=== PATIENT | female | born 1990 | race Caucasian/White ===

== ENCOUNTER 2022-04-15 07:15 | Inpatient (IN) | payer BC ==
[~2022-04-15 07:15] MED LIST: Bupivacaine 0.25% 10 ML SDV ONE
[2022-04-15] MEDS ORDERED: Nalbuphine HCl 10 MG/ 1ML Amp IVPUSH PRN (09:15)
[2022-04-15] MEDS ORDERED: Oxytocin/Lactated Ringers 10 UNIT/1,000 ML BAG IV SCH ×2 (09:15)
[2022-04-15] MEDS ORDERED: Lidocaine 1% 50 ML MDV INJECT PRN (09:15)
[2022-04-15] MEDS ORDERED: Sodium Chloride 0.9% 10 ML Syringe FLUSH PRN (09:15)
[2022-04-15] MEDS: Lactated Ringers 1,000 ML IV SCH ×3 (09:21→17:38)
[2022-04-15] MEDS ORDERED: Ampicillin 2 GM in Sodium Chloride 0.9% 100 ML IV ONE (09:30)
[2022-04-15] MEDS: Ampicillin 1 GM in Sodium Chloride 0.9% 100 ML IV SCH ×2 (13:03→17:38)
[2022-04-15] MEDS ORDERED: diphenhydrAMINE 50 MG/ML SDV IVPUSH PRN (13:33)
[2022-04-15] MEDS ORDERED: fentaNYL 100 MCG/2 ML SDV EPIDUR PRN (13:33)
[2022-04-15] MEDS ORDERED: ePHEDrine 50 MG/ML SDV IVPUSH PRN (13:33)
[2022-04-15] MEDS ORDERED: Bupivacaine/fentaNYL/NS 100 ML Bag EPIDUR PRN (13:33)
[2022-04-15] MEDS ORDERED: Sodium Chloride 0.9% 10 ML Syringe FLUSH SCH (21:00)
[2022-04-15] MEDS ORDERED: Acetaminophen 325 MG Tab PO PRN (22:20)
[2022-04-15] MEDS ORDERED: Benzocaine/Menthol 20%-0.5% Spray 78 GM Cannister TOP PRN (22:20)
[2022-04-15] MEDS: Witch Hazel Medicated Pads 40/Jar TOP PRN (22:49)
[2022-04-15] MEDS: Ibuprofen 600 MG Tab PO PRN (22:50)
[2022-04-16] MEDS: Ampicillin 1 GM in Sodium Chloride 0.9% 100 ML IV SCH (02:23)
[2022-04-16] MEDS: Ibuprofen 600 MG Tab PO PRN ×3 (05:02→19:38)
[2022-04-16] MEDS: Levothyroxine 50 MCG Tab PO SCH (05:02)
[2022-04-16] MEDS ORDERED: Levothyroxine 50 MCG Tab PO SCH ×2 (06:00)
[2022-04-16] MEDS ORDERED: Citalopram 20 MG Tab PO SCH ×4 (09:00→21:30)
[2022-04-16] MEDS: Prenatal Multivitamin with Calcium/Folic Acid/Iron Tab PO SCH (12:07)
[2022-04-16] MEDS: Docusate Sodium 100 MG Cap PO SCH ×2 (12:08→22:05)
[2022-04-17] MEDS: Ibuprofen 600 MG Tab PO PRN ×2 (03:16→10:51)
[2022-04-17] MEDS: Levothyroxine 50 MCG Tab PO SCH (07:49)
[2022-04-17] MEDS: Docusate Sodium 100 MG Cap PO SCH (08:50)
[2022-04-17] MEDS: Prenatal Multivitamin with Calcium/Folic Acid/Iron Tab PO SCH (08:50)
[2022-04-17] MEDS: Witch Hazel Medicated Pads 40/Jar TOP PRN (11:41)
== END 2022-04-17 12:17 | disposition home or self-care (01) | DRG 542 ==
LOC: JD.OBCHECK 07:15 → JD.OB 07:24 → JD.OBCHECK 09:12 → JD.OB 09:13 → OBSVTOIN 21:13 → JD.OB 21:14
PROVIDERS: ADMIT Obstetrics & Gynecology; ATTEND Obstetrics & Gynecology
PROC: 10D07Z6 Extraction of Products of Conception, Vacuum, Via Natural or Artificial Opening (ICD-10-PCS; principal; 2022-04-15)
PROC: 3E0R3BZ Introduction of Anesthetic Agent into Spinal Canal, Percutaneous Approach (ICD-10-PCS; 2022-04-15)
PROC: 0DQR0ZZ Repair Anal Sphincter, Open Approach (ICD-10-PCS; 2022-04-15)
DX: O99.824 Streptococcus B carrier state complicating childbirth (principal); Z3A.38 38 weeks gestation of pregnancy; Z37.0 Single live birth; O70.20 Third degree perineal laceration during delivery, unspecified; Z87.891 Personal history of nicotine dependence
CPT/HCPCS: 01967; 36415; 51701; 59025; 59409; 84112; 85025; 86592; A9270-GY; J0290; J2300; J2590; J3010; J3490; J7120

== ENCOUNTER 2022-04-19 00:37 | Emergency (ER) | payer BC ==
[2022-04-19] MEDS ORDERED: Sodium Chloride 0.9% 10 ML Syringe FLUSH PRN (01:04)
[2022-04-19 01:27] LABS: ESTIMATED GFR > 60 mL/min (>60)
[2022-04-19] MEDS ORDERED: Albuterol 6.7 GM Inhaler INH ONE (05:09)
[2022-04-19] MEDS ORDERED: Azithromycin 250 MG Tab PO ONE (05:24)
== END 2022-04-19 05:40 | disposition home or self-care (01) ==
LOC: JD.ED 00:37
DX: O99.53 Diseases of the respiratory system complicating the puerperium (principal); J18.9 Pneumonia, unspecified organism; E03.9 Hypothyroidism, unspecified; K21.9 Gastro-esophageal reflux disease without esophagitis; Z88.2 Allergy status to sulfonamides; Z88.8 Allergy status to other drugs, medicaments and biological substances; Z79.899 Other long term (current) drug therapy; Z20.822 Contact with and (suspected) exposure to COVID-19
CPT/HCPCS: 36415; 71275; 80053; 85025; 87635; 93005; 94640; 99285; A9270; J3490; U0002

== ENCOUNTER 2025-07-08 15:07 | Day surgery (SDC) | payer BC, OTHER ==
[2025-07-08] MEDS ORDERED: Sodium Chloride 0.9% 10 ML Syringe FLUSH PRN (15:32)
[2025-07-08 16:06] LABS: BASOPHILS ABSOLUTE AUTO 0.1 K/mm3 (0.0-0.2); BASOPHILS PERCENT AUTO 0.6 % (0.0-1.0); EOSINOPHILS ABSOLUTE AUTO 0.3 K/mm3 (0.0-0.4); EOSINOPHILS PERCENT AUTO 2.4 % (0.0-6.0); IMMATURE GRAN ABSOLUTE AUTO 0.03 K/mm3 (0.00-0.05); IMMATURE GRAN PERCENT AUTO 0.3 % (0.0-0.4); LYMPHOCYTES ABSOLUTE AUTO 2.1 K/mm3 (1.0-4.8); LYMPHOCYTES PERCENT AUTO 18.5 % (24.0-44.0); MEAN PLATELET VOLUME 9.3 fl (9.4-12.3); MONOCYTES ABSOLUTE AUTO 0.7 K/mm3 (0.0-0.8); MONOCYTES PERCENT AUTO 5.7 % (0.0-8.0); NEUTROPHILS ABSOLUTE AUTO 8.3 K/mm3 (1.8-7.7); NEUTROPHILS PERCENT AUTO 72.5 % (41.0-71.0); NRBC ABSOLUTE 0.00 (0.00-0.02); NRBC PERCENT 0.0 % (0.0-0.2); PLATELET COUNT,PLT 295 K/mm3 (150-400); RED BLOOD CELL COUNT 4.07 M/mm3 (4.10-5.30); WHITE BLOOD CELL COUNT,WBC 11.47 K/mm3 (3.9-11.3)
[2025-07-08 16:28] LABS: A/G RATIO 0.9 (1-2); ALANINE AMINOTRANSFERASE,ALT 39.0 U/L (14-59); ASPARTATE AMNIOTRANSFERASE,AST 22.0 U/L (15-37); BILIRUBIN TOTAL 0.9 mg/dL (0.2-1.0); BLOOD UREA NITROGEN,BUN 10.0 mg/dL (7-18); CARBON DIOXIDE,CO2 28.0 mEq/L (21-32); CHLORIDE,CL 105.0 mEq/L (98-107); CREATININE 0.8 mg/dL (0.55-1.02); EST CRCL DRUG DOSING (CG) 86.37 mL/min; ESTIMATED GFR 100.0 mL/min (>60); GLUCOSE RANDOM 99.0 mg/dL (70-99); POTASSIUM,K 3.8 mEq/L (3.5-5.1); PROTEIN TOTAL,TP 6.9 g/dl (6.4-8.2); SODIUM,NA 138.0 mEq/L (136-145)
[2025-07-08 16:41] LABS: APPEARANCE,URINE CLEAR (Clear); GLUCOSE,URINE NEGATIVE (Negative); OCCULT BLOOD,URINE NEGATIVE (Negative)
[2025-07-08] MEDS ORDERED: Midazolam 1 MG/ML 2 ML SDV ONE (19:52)
[2025-07-08] MEDS ORDERED: Ketamine HCL/NACL, ISO-OSM 50 MG/5 ML Syringe ONE (19:52)
[2025-07-08] MEDS ORDERED: propofoL 500 MG/50 ML 50 ML ONE (19:52)
[2025-07-08] MEDS ORDERED: fentaNYL 250 MCG/5 ML SDV ONE (19:52)
[2025-07-08] MEDS ORDERED: Dexamethasone 4 MG/ML 5 ML MDV ONE (19:55)
[2025-07-08] MEDS: Lactated Ringers 1,000 ML IV SCH (19:59)
[2025-07-08] MEDS ORDERED: Lactated Ringers 1,000 ML ONE (20:24)
[2025-07-08] MEDS ORDERED: Esmolol 100 MG/10 ML SDV ONE (20:58)
[2025-07-08] MEDS ORDERED: Propofol 200 MG/20 ML SDV ONE (20:59)
[2025-07-08] MEDS ORDERED: Ondansetron 4 MG/2 ML SDV ONE (21:28)
[2025-07-08] MEDS ORDERED: fentaNYL 100 MCG/2 ML SDV IVPUSH PRN (21:36)
[2025-07-08] MEDS ORDERED: Ondansetron 4 MG/2 ML SDV IVPUSH PRN (21:36)
[2025-07-08] MEDS: Ketorolac 30 MG/ML SDV IVPUSH ONE (22:53)
== END 2025-07-08 23:09 | disposition home or self-care (01) ==
LOC: JD.ED 15:07 → JD.SDS 19:39
PROVIDERS: ATTEND Obstetrics & Gynecology
DX: N83.8 Other noninflammatory disorders of ovary, fallopian tube and broad ligament (principal); K21.9 Gastro-esophageal reflux disease without esophagitis; F32.A Depression, unspecified; F41.9 Anxiety disorder, unspecified; E03.9 Hypothyroidism, unspecified; Z88.6 Allergy status to analgesic agent; Z88.2 Allergy status to sulfonamides; Z79.890 Hormone replacement therapy; Z79.899 Other long term (current) drug therapy
CPT/HCPCS: 36415; 58661; 76817; 80053; 81003; 83690; 84702; 84703; 85025; 86140; 96360; 99285; A9270; J0665; J1100; J1805; J1885; J2003; J2250; J2704; J3010; J7030; J7120; 00840; 99140; J2405; J3490